=== PATIENT | female | born 1985 | race Caucasian/White ===

== ENCOUNTER 2024-01-06 12:11 | Outpatient (CLI) | payer OTHER, SELFPAY ==
[2024-01-07 14:58] LABS: Estradiol Premenol Female 29 pg/mL
[2024-01-07 22:30] LABS: Follicle Stimulating Hormone 5.9 IU/L; Luteinizing Hormone, Serum 5.8 IU/L
[2024-01-07 23:37] LABS: Prolactin 10.5 ng/mL (2.8-29.2)
== END 2024-01-06 12:12 | disposition home or self-care (01) ==
LOC: LAB 12:11
PROVIDERS: Visit Provider Obstetrics & Gynecology
DX: Z31.41 Encounter for fertility testing (principal)
CPT/HCPCS: 36415; 82670; 83001; 83002; 84146; 84443

== ENCOUNTER 2024-01-24 09:30 | Outpatient (CLI) | payer OTHER, SELFPAY | END 2024-01-24 09:31 | disposition home or self-care (01) | LOC: NFLDREF 01-28 07:04 | PROVIDERS: Visit Provider Obstetrics & Gynecology | DX: Z31.41 Encounter for fertility testing (principal) | CPT/HCPCS: 84144 ==

== ENCOUNTER 2024-01-30 05:50 | Day surgery (SDC) | payer OTHER, SELFPAY ==
[2024-01-30] MEDS: LACTATED RINGERS 1000 ML 1,000 ML 100 ML IV (06:10)
[2024-01-30] MEDS: SODIUM CHLORIDE 0.9 % (FLUSH) 10 ML SYRINGE IVF (06:18)
[2024-01-30 06:22] VITALS: BP 133/85; PULSE 70; RESP 16; TEMP 36.7; O2SAT 98
[2024-01-30 06:26] LABS: Ur HCG Qualitative* Negative (Negative)
--- NOTE | 2024-01-30 07:15 | P.PCN_ITS ---
Procedure Note Time Seen by Provider: : Date Seen: 01/30/24 Date of procedure: 01/30/24 Will [facility] bill your pro fee for this procedure?: Yes Procedure: Preoperative diagnosis: 38 year-old nulligravid woman with possible endometrial polyp on sonohysterogram. Postoperative diagnosis: Same Procedure: Hysteroscopy, Dilation and Curettage using the Truclear incisor Anesthesia: Conscious sedation, paracervical block. Surgeon: Lorena Maria MD Clinical Admissions Manager: None Estimated blood loss: 10 mL Specimen: Endometrial curettings to pathology. Findings: Exam under anesthesia: Uterus: Retroverted position, less than less than 10 week sized, mobile, with no masses or nodularity palpable. Uterus sounded to 10 cm. No adnexal masses or nodularity palpable. On hysteroscopy: Multiple Polypoid masses. Procedure: Nory was taken to the operating operating room more conscious sedation was found to be adequate. The patient was placed on in the dorsal lithotomy position and an exam under anesthesia was performed with findings stated above. She was then prepped and draped in a normal sterile manner. A bivalve speculum was placed in the vagina. The cervix appears nulliparous. Otherwise no abnormalities. The paracervical block was placed using 0.5% Marcaine, 10 mL was injected at the 4 and 8 o'clock positions on the cervix. The anterior lip of the cervix was grasped with a long Allis clamp. The cervix dilated to Hegar 6. The uterus sounded to 10 cm. The Truclear hysteroscope was advanced into the uterus. A diagnostic hysteroscopy was performed with normal saline as the insufflation medium. Findings are stated above. The Truclear incisor was then advanced through the camera. The curettage was performed with the incisor over an approximately 5 minutes. The incisor was then removed. The endometrial cavity appeared normal. Saline deficit at the end of the procedure 253 mL. Total saline used 1200 mL. Nothing was needed for hemostasis. The hysteroscope, Allis clamp and speculum were removed from the vaginal canal. The patient tolerated the procedure well. Sponge, lap and instrument counts were correct x2 at the end of the procedure. The patient was taken to the recovery area in stable condition.
--- NOTE | 2024-01-30 07:15 | W.PM.H&PU ---
History & Physical Update History & Physical Update H&P Reviewed and patient assessed: No changes noted
[2024-01-30] MEDS: BUPIVACAINE 0.5% 30 ML INJECTION (08:00)
[2024-01-30 08:26] VITALS: BP 122/77; PULSE 87; RESP 16; TEMP 36.3; O2SAT 98
--- NOTE | 2024-01-30 08:29 | W.ANESCHARGE ---
Anesthesia Charges Start Date/Time Anesthesia Start Date: 01/30/24 Anesthesia Start Time: 07:27 Stop Date/Time Anesthesia Stop Date: 01/30/24 Anesthesia Stop Time: 08:28
[2024-01-30 08:30] VITALS: BP 124/80; PULSE 74; RESP 16; O2SAT 93
--- NOTE | 2024-01-30 08:42 | W.ANESCHARGE ---
Anesthesia Charges Start Date/Time Anesthesia Start Date: 01/30/24 Anesthesia Start Time: 07:27 Stop Date/Time Anesthesia Stop Date: 01/30/24 Anesthesia Stop Time: 08:28
[2024-01-30 08:45] VITALS: BP 137/100; PULSE 66; RESP 16; O2SAT 100
--- NOTE | 2024-01-30 08:58 | SUR.PHASEII ---
Pt tolerated water and pudding.
[2024-01-30 09:00] VITALS: BP 125/79; PULSE 69; RESP 16; TEMP 36.3; O2SAT 100
[2024-01-30 09:21] VITALS: BP 124/79; PULSE 68; RESP 16; O2SAT 100
== END 2024-01-30 09:39 | disposition home or self-care (01) ==
LOC: OR 05:53
PROVIDERS: Visit Provider Obstetrics & Gynecology
PROC: 0UDB8ZZ Extraction of Endometrium, Via Natural or Artificial Opening Endoscopic (ICD-10-PCS; CPT 58558; principal; 2024-01-30 07:15)
DX: N84.0 Polyp of corpus uteri (principal)
CPT/HCPCS: 58558; 00952; 81025; 88305; J0665; J1100; J1885; J2250; J2405; J2704; J3010; J7120